=== PATIENT | male | born 1955 | race African-American/Black ===

== ENCOUNTER 2017-04-17 01:34 | Emergency (ER) | payer OTHER ==
[~2017-04-17] VITALS: Ht 182.9 cm; Wt 125.0 kg
[~2017-04-17 01:34] MED LIST: ALBU0.086 NEB; ALBU1AER INH; ASPI1TAB7 PO; CINN500C7 PO; DULE100A INH; FLON0.053 EACH NARE; FLUT50SP EACH NARE; FURO20 PO; HOME1TAB8 PO; LEVA500T PO; LORA10 PO; LOSA100T3 PO; METF500 PO; MONT10TA2 PO; POTA10TA2 PO; TRAM50TA PO
[2017-04-17 01:41] VITALS: BP 141/78; PULSE 78; RESP 16; TEMP 97.5; O2SAT 100
[2017-04-17 01:48] VITALS: BP_SYST 133; BP_SYST 145; BP_SYST 158; BP_DIAS 75; BP_DIAS 76; RESP 14; RESP 16
[2017-04-17] MEDS ORDERED: TRAM50TA PO (01:59)
[2017-04-17] MEDS ORDERED: METF500T PO (01:59)
[2017-04-17] MEDS ORDERED: CLAR10CA3 PO (01:59)
[2017-04-17] MEDS ORDERED: LOSA50TA6 (01:59)
[2017-04-17] MEDS ORDERED: ASPI1TAB73 (01:59)
[2017-04-17] MEDS ORDERED: FURO20TA PO (01:59)
[2017-04-17] MEDS ORDERED: K-TA10TA PO (01:59)
[2017-04-17] MEDS ORDERED: MONT10TA4 PO (01:59)
[2017-04-17 02:25] LABS: AUTOMATED NEUTROPHIL # 3.9 TH/MM3 (1.8-7.7); BASOPHIL # 0.1 TH/MM3 (0-0.2); BASOPHIL % 0.8 % (0.0-2.0); EOSINOPHIL # 0.1 TH/MM3 (0-0.4); EOSINOPHIL % 1.1 % (0.0-4.0); HEMATOCRIT 41.9 % (39.0-51.0); HEMOGLOBIN 13.9 GM/DL (13.0-17.0); LYMPH % 41.8 % (9.0-44.0); LYMPHOCYTE # 3.5 TH/MM3 (1.0-4.8); MEAN CELL VOLUME 85.6 FL (80.0-100.0); MEAN CORPUSCULAR HEMOGLOBIN 28.3 PG (27.0-34.0); MEAN CORPUSCULAR HGB CONC 33.1 % (32.0-36.0); MEAN PLATELET VOLUME 8.5 FL (7.0-11.0); MONOCYTE # 0.8 TH/MM3 (0-0.9); NEUT % 46.3 % (16.0-70.0); PLATELET COUNT 262 TH/MM3 (150-450); RED CELL DISTRIBUTION WIDTH 14.9 % (11.6-17.2); WHITE BLOOD COUNT 8.3 TH/MM3 (4.0-11.0)
[2017-04-17 02:42] LABS: BICARBONATE 28.6 MEQ/L (21.0-32.0); BLOOD UREA NITROGEN 17 MG/DL (7-18); CALCIUM 9.4 MG/DL (8.5-10.1); CHLORIDE 104 MEQ/L (98-107); CREATININE 1.25 MG/DL (0.60-1.30); GLOMERULAR FILTRATION RATE 71 ML/MIN (>89); GLUCOSE,RANDOM 135 MG/DL (74-106); MAGNESIUM 2.3 MG/DL (1.5-2.5); SODIUM (NA) 141 MEQ/L (136-145)
[2017-04-17 02:45] LABS: TROPONIN I LESS THAN 0.02 NG/ML (0.02-0.05)
[2017-04-17 03:56] VITALS: BP 132/75; PULSE 68; RESP 16; O2SAT 97
[2017-04-17 04:01] LABS: BILIRUBIN, URINE NEG (NEG); BLOOD, URINE NEG (NEG); GLUCOSE,URINE NEG (NEG); KETONE, URINE NEG (NEG); MUCUS URINE MANY /lpf (OCC); NITRITE,URINE NEG (NEG); PH, URINE 5.5 (5.0-8.5); SQUAMOUS EPITHELIAL CELL URINE <1 /hpf (0-5); URINE COLOR YELLOW (YELLW/STRAW); URINE LEUKOCYTE ESTERASE NEG (NEG)
--- NOTE | 2017-04-17 04:04 | PD ---
HPI Chief Complaint: Nausea Time Seen by Provider: 01:49 Travel History International Travel<30 days: No Contact w/Intl Traveler<30days: No Traveled to known affect area: No History of Present Illness HPI 61yo M with PMH of DM was a family member of another patient when he was found slump over in his chair. He said he was feeling sick, nauseous and did not passed out. He was wheel to my medical pod and place on the bed. Blood glucose was 131. Pt said he started feeling better while laying down. Denies any chest pain, sob, vomiting, abdominal pain, visual changes, headache, focal weakness or numbness. Pt is no longer nauseous. PFSH Past Medical History Asthma: Yes Cardiovascular Problems: Yes Diabetes: Yes (Metformin) Patient Takes Glucophage: Yes Hypertension: Yes Tetanus Vaccination: Unknown Influenza Vaccination: No Past Surgical History Joint Replacement: Yes (R knee ) Social History Alcohol Use: No Tobacco Use: No Substance Use: No Allergies-Medications (Allergen,Severity, Reaction): Coded Allergies: No Known Allergies (Unverified , 10/20/14) Reported Meds & Prescriptions Reported Meds & Active Scripts Active Reported Delilah Aspirin EC Low Dose (Aspirin) 81 Mg Tabdr Claritin (Loratadine) 10 Mg Cap 10 Mg PO DAILY K-Tab (Potassium Chloride) 10 Meq Tab 10 Meq PO DAILY Montelukast (Montelukast Sodium) 10 Mg Tab 10 Mg PO HS Furosemide 20 Mg Tab 20 Mg PO DAILY Metformin (Metformin HCl) 500 Mg Tab 500 Mg PO BIDPC Tramadol (Tramadol HCl) 50 Mg Tab 50 Mg PO Q12HR PRN Losartan-Hctz 50-12.5 mg Tab (Losartan/Hydrochlorothiazide) 50 Mg-12.5 Mg Tablet BID Review of Systems Except as stated in HPI: all other systems reviewed are Neg Physical Exam Narrative GENERAL: 61yo M in mild distress. SKIN: Diaphoretic. HEAD: Atraumatic. Normocephalic. EYES: Pupils equal and round. No scleral icterus. No injection or drainage. ENT: No nasal bleeding or discharge. Mucous membranes pink and moist. NECK: Trachea midline. No JVD. CARDIOVASCULAR: Regular rate and rhythm. No murmur appreciated. RESPIRATORY: No accessory muscle use. Clear to auscultation. Breath sounds equal bilaterally. GASTROINTESTINAL: Abdomen soft, non-tender, nondistended. MUSCULOSKELETAL: No obvious deformities. No clubbing. No cyanosis. No edema. NEUROLOGICAL: Awake and alert. No obvious cranial nerve deficits. Motor grossly within normal limits. Normal speech. PSYCHIATRIC: Appropriate mood and affect; insight and judgment normal. Data Data Last Documented VS Vital Signs Date Time Temp Pulse Resp B/P (MAP) Pulse Ox O2 Delivery O2 Flow Rate FiO2 04/17/17 03:56 68 16 132/75 (94) 97 Room Air 04/17/17 01:41 97.5 Orders Orders Basic Metabolic Panel (Bmp) (04/17/17 01:49) Complete Blood Count With Diff (04/17/17 01:49) Magnesium (Mg) (04/17/17 01:49) Troponin I (04/17/17 01:49) Urinalysis - C+S If Indicated (04/17/17 01:49) Blood Glucose (04/17/17 01:49) Orthostatic Blood Pressure (04/17/17 01:49) Ed Discharge Order (04/17/17 04:09) Labs Laboratory Tests Test 04/17/17 02:00 04/17/17 03:39 White Blood Count 8.3 TH/MM3 Red Blood Count 4.90 MIL/MM3 Hemoglobin 13.9 GM/DL Hematocrit 41.9 % Mean Corpuscular Volume 85.6 FL Mean Corpuscular Hemoglobin 28.3 PG Mean Corpuscular Hemoglobin Concent 33.1 % Red Cell Distribution Width 14.9 % Platelet Count 262 TH/MM3 Mean Platelet Volume 8.5 FL Neutrophils (%) (Auto) 46.3 % Lymphocytes (%) (Auto) 41.8 % Monocytes (%) (Auto) 10.0 % Eosinophils (%) (Auto) 1.1 % Basophils (%) (Auto) 0.8 % Neutrophils # (Auto) 3.9 TH/MM3 Lymphocytes # (Auto) 3.5 TH/MM3 Monocytes # (Auto) 0.8 TH/MM3 Eosinophils # (Auto) 0.1 TH/MM3 Basophils # (Auto) 0.1 TH/MM3 CBC Comment DIFF FINAL Differential Comment Blood Urea Nitrogen 17 MG/DL Creatinine 1.25 MG/DL Random Glucose 135 MG/DL Calcium Level 9.4 MG/DL Magnesium Level 2.3 MG/DL Sodium Level 141 MEQ/L Potassium Level 3.7 MEQ/L Chloride Level 104 MEQ/L Carbon Dioxide Level 28.6 MEQ/L Anion Gap 8 MEQ/L Estimat Glomerular Filtration Rate 71 ML/MIN Troponin I LESS THAN 0.02 NG/ML Urine Color YELLOW Urine Turbidity CLEAR Urine pH 5.5 Urine Specific [place] 1.034 Urine Protein 30 mg/dL Urine Glucose (UA) NEG mg/dL Urine Ketones NEG mg/dL Urine Occult Blood NEG Urine Nitrite NEG Urine Bilirubin NEG Urine Urobilinogen 2.0 MG/DL Urine Leukocyte Esterase NEG Urine RBC 1 /hpf Urine WBC 1 /hpf Urine Squamous Epithelial Cells <1 /hpf Urine Mucus MANY /lpf Microscopic Urinalysis Comment CULT NOT INDICATED MDM Medical Decision Making Medical Screen Exam Complete: Yes Emergency Medical Condition: Yes Interpretation(s) EKG: NSR 64bpm. Normal axis. Q wave III. No ST segment elevation or depression. QTc 425ms. Differential Diagnosis Vasovagal episode vs. arrhythmia vs. hypoglycemia vs. dehydration Narrative Course 61yo M with episode of feeling nauseous, sick while sitting in chair. Pt felt better after lying down. Denies any lose of consciousness. Labs reviewed, no leukocytosis. H/H normal. Troponin negative. Glucose 135. Negative orthostatics. UA negative. Pt said this has happened before and they didnt figure out what happened either. Pt has been observed in the ED for over 2 hours and has been asymptomatic. Pt is not diaphoretic anymore. Denies any complaints and wants to go home. Said he was here with his sick who was sick and may have been stressed about that. Return precautions given. Diagnosis Primary Impression: Vasovagal episode Patient Instructions: General Instructions Departure Forms: Tests/Procedures Additional Instructions: Please return to the ED if symptoms worsen. Please follow up with your primary care physician in 2-3 days. Med/Other Pt SpecificInfo: No Change to Meds Disposition: 01 DISCHARGE HOME Condition: Stable Karin Freeman DO Apr 17, 2017 04:04
--- NOTE | 2017-04-17 08:03 | EKG ---
Date Performed: 04/17/2017 Time Performed: 01:46:47 PTAGE: 61 years EKG: Sinus rhythm POSSIBLE RIGHT VENTRICULAR CONDUCTION DELAY BORDERLINE ECG Compared to prior electrocardiogram, rate has decreased DOCTOR: Lalo Sharpe Interpretating Date/Time 04/17/2017 08:02:45
== END 2017-04-17 04:15 | disposition home or self-care (01) ==
LOC: NEPC 01:34
DX: R55 Syncope and collapse (principal); R94.31 Abnormal electrocardiogram [ECG] [EKG]; I10 Essential (primary) hypertension; E11.9 Type 2 diabetes mellitus without complications; J45.909 Unspecified asthma, uncomplicated; Z79.84 Long term (current) use of oral hypoglycemic drugs; Z79.899 Other long term (current) drug therapy
CPT/HCPCS: 80048; 81001; 83735; 84484; 85025; 93005; 99284